=== PATIENT | female | born 1950 | race Caucasian/White ===

== ENCOUNTER 2022-08-10 13:35 | Emergency (ER) | payer MEDICARE ==
[2022-08-10] VITALS (14 sets, daily range): BP systolic 142–227; BP diastolic 74–110
[~2022-08-10] VITALS: Ht 154.9 cm; Wt 56.0 kg
[2022-08-10] MEDS ORDERED: LOSARTAN POTASS50 MG PO (14:28)
[2022-08-10] MEDS ORDERED: LEVOTHYROXIN50 MCG PO (14:28)
[2022-08-10] MEDS ORDERED: IPRATROPIUM BR0.03 % (14:29)
[2022-08-10 15:19] LABS: BASO% 1.3 % (0-3); HEMATOCRIT 46.3 % (37.0-47.0); HEMOGLOBIN 14.8 g/dl (12.0-16.0); LYMPH% 26.2 % (15-41); MEAN CELL VOLUME 86.9 fL CALC (80.0-100.0); MEAN CORPUSCULAR HGB 27.8 pG CALC (26.0-32.0); MONO% 5.3 % (2-13); NEUT# 3.56 thou/uL (2.00-7.15); NEUT% 65.2 % (42-76); RED BLOOD COUNT 5.33 mill/uL (4.20-5.60)
[2022-08-10 15:40] LABS: ALBUMIN 4.6 g/dL (3.2-5.0); ALKALINE PHOSPHATASE 117 u/l (38-126); ANION GAP 11 (6-22 (CALC)); BILIRUBIN, TOTAL 0.6 mg/dL (0.02-1.3); BUN 13 mg/dL (8-23); BUN/CREATININE RATIO 18 (12-20 (CALC)); CARBON DIOXIDE 31 mmol/l (22-30); CHLORIDE 104 mmol/l (95-108); CREATININE 0.7 mg/dL (0.5-1.0); GFR FOR AFR.AMER. > 60 ML/MIN (>=60 (CALC)); GFR OTHER RACES > 60 ML/MIN (>=60 (CALC)); POTASSIUM 3.9 mmol/l (3.5-5.1); SGOT/AST 28 u/l (9-36); SODIUM 141 mmol/l (137-146); TOTAL PROTEIN 7.8 g/dL (6.3-8.2)
[2022-08-10] MEDS ORDERED: HYDROCHLOROT12.5 M1 PO (17:44)
== END 2022-08-10 18:06 | disposition home or self-care (01) ==
LOC: ED 13:35
PROVIDERS: Family Medicine
DX: I10 Essential (primary) hypertension (principal); E03.9 Hypothyroidism, unspecified